=== PATIENT | male | born 1955 | race Caucasian/White ===

== ENCOUNTER 2023-01-30 10:02 | Outpatient (CLI) | payer MEDICARE, SELFPAY ==
[2023-01-30 13:34] LABS: Creatinine Urine 53.5 mg/dL
[2023-01-30 13:41] LABS: MALB Creatinine Ratio < 11.2 mg/g (0-30); Microalbumin Urine Random < 6.0 mg/L (0-16.7)
[2023-01-30 15:18] LABS: Cholesterol 180 mg/dL (0-200); HDL Direct 42 mg/dL; Triglycerides 158 mg/dL (<150)
[2023-01-30 15:33] LABS: LDL Cholesterol Direct 106 mg/dL
== END 2023-01-30 10:03 | disposition home or self-care (01) ==
LOC: ANHWCLAB 10:04
PROVIDERS: PCP Internal Medicine Endocrinology, Diabetes & Metabolism; Visit Provider Internal Medicine Endocrinology, Diabetes & Metabolism
DX: E11.65 Type 2 diabetes mellitus with hyperglycemia (principal); E78.1 Pure hyperglyceridemia
CPT/HCPCS: 36415; 80061; 82043; 82607